=== PATIENT | female | born 1995 | race Caucasian/White ===

== ENCOUNTER 2023-12-24 14:25 | Outpatient (AMB) | payer OTHER, SELFPAY ==
--- NOTE | 2023-12-24 14:32 | A.OFFVIS_ITS ---
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 Have constant headaches every day for the past 15 years. Allergies No Known Allergies Allergy (Verified 12/24/23 14:38) Medication List - Last Reconciled 12/24/23 by CIRILO Diehl venlafaxine ER 75 mg PO DAILY HPI HPI Comments History of Present Illness Details Right handed 28-yr-old female presents for new pt evaluation of headache disorder. Pt reports she has headaches since high school w/o known cause. In the last few years, she tried to manage the headaches by treating her anxiety/depression, TMJ d/o, and adjusting her glasses however these were ineffective. Pt is currently 8 weeks , f/b Dr Hidalgo at [facility], [facility]. Pt also endorses a h/o: Cramps: occasionally Musculoskeletal: back and neck pain- w/o known injury. Mood d/o: Anxiety Sleep d/o: chronic poor sleep, sleep maintenance difficulties, fatigue has had normal in-lab PSG. Constipation: occasional Family history of migraine or other headache disorder: mother has headaches, maternal aunt had brain cancer- in remission. 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 Denies History of concussion/head injury, Respiratory d/o, CV disease, Clotting or hematology d/o, Endocrine or metabolic d/o, History of seizure, syncope, or drop attacks, Headache questionnaire:? Previous work-up: MRI: as a child, her vision would zoom out and everything would become quite tiny. Neuro work-up was normal. No epiosdes of this in many yrs. Typical headache characteristics: Prodrome symptoms: None Aura: None Pain intensity: Dull Location, quality, characteristics: Dull generalized pain, if more severe throbbing, in bilateral temples, and can move into the back of head and neck. Associated symptoms? photophobia, phonophobia, fatigue, difficulty concentrating, activity intolerance. Postdrome: None Triggers: poor sleep, dehydration, poor sleep, standing up can exacerbate the headache. Menstrual triggers: Denies, Menses is regular- typically. Time of day: No specific time of day Duration and Frequency: All days, every day How does headache impact your life? Pushes through her day Current acute medication use/interventions: Nothing Current preventative medication use: Venlafaxine ER 75mg. Magnesium 400mg qhs. Non-pharmacological interventions: Mouth guard Lifestyle considerations: Sleep routine: Bedtime: 9:30-11pm, Wake-up time: 6am Sleep difficulties: Difficulty staying asleep, Fatigue, rare Leg Cramps. Can have some leg restlessness, especially if tired. Caffeine use: Prior to 1 cup of coffee per day Substance use: None Exercise:?Cardio and strength training a few times per week. 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 Head: Yes normocephalic Resp Effort & Inspection: normal respiratory effort and able to speak in complete sentences Neuro Other: TMJ- clicking, sliding on open/close General: patient oriented x3 Cranial nerves: Yes CN's II-XII intact bilaterally (w/ exception of mild right lower fcaial assymetry- ? masseter hypertrophy) Cognition (Neuro): normal cognition Gait exam (Neuro): Normal gait present Motor exam (neuro): 5/5 motor strength present throughout Deep tendon reflexes (DTR's): Right triceps reflex intensity grade: 2+, Left triceps reflex intensity grade: 2+, Rt Biceps (C5, C6): 2+, Left biceps reflex intensity grade: 2+, Right brachioradialis reflex intensity grade: 2+, Left brachioradialis reflex intensity grade: 2+, Right patellar reflex intensity grade: 2+ and Left patellar reflex intensity grade: 2+ Coordination: [id number] test normal, tandem gait normal and Romberg test negative Pupils: Normal pupillary reactivity/response: bilateral Psych Appearance: grossly normal Mental Status: mental status grossly normal Speech and movement: Normal speech and movement present Affect: normal affect Attitude: cooperative Thought process: Normal thought process present Assessment & Plan Assessment & Plan (1) Chronic migraine without aura: Code(s): G43.709 - Chronic migraine without aura, not intractable, without status migrainosus (2) TMJ dysfunction: Code(s): M26.609 - Unspecified temporomandibular joint disorder, unspecified side (3) : Code(s): Z34.90 - Encounter for supervision of normal , unspecified, unspecified trimester Plan For overall headache management: Optimize good self-care, including but not limited to maintaining a healthy diet, adequate fluid intake, adequate sleep, and engaging in regular physical activity. Track headaches As patient is , advised her to notify us or her OB with any changes in her headache presentation, especially vision changes, diplopia, swelling. For TMJ dysfunction: Continue invisalign retainer. Try TMJ jaw support. Consider PT. For acute headache treatment: Discussed importance of taking acute medications at the first sign of headache, however stressed importance of avoiding acute medication overuse. May use Tylenol prn. Offered Sumatriptan- pt would like to hold for now. Consider Nerivio neuromodulation device- 45 stimulation qd prn. Previous acute migraine medication trials: None Acute migraine medication contraindications: For headache prevention medication: Consider Riboflavin 400mg qam- pt to discuss w/ OB. Continue Magnesium 400mg qhs Continue Venlafaxine ER 75mg qd- used primarily for anxiety. Consider Nerivio neuromodulation device- 45 stimulation qod. Previous migraine prevention medication trials: Cosmetic botox was helpful. Migraine prevention medication contraindications: None at this time Pt seen in collaboration w/ Dr Marissa Prince. Pt to follow-up in 6 months or sooner prn. Coding Level of Care Code New Pt Level 4 (82236) Diagnoses Chronic migraine without aura G43.709 TMJ dysfunction M26.609 Z34.90
[2023-12-24 14:43] VITALS: BP 112/60; PULSE 81; O2SAT 98; BMI 30.4
== END 2023-12-24 15:56 | disposition home or self-care (01) ==
PROVIDERS: Visit Provider Nurse Practitioner Family
DX: G43.709 Chronic migraine without aura, not intractable, without status migrainosus (principal); M26.609 Unspecified temporomandibular joint disorder, unspecified side; Z34.90 Encounter for supervision of normal pregnancy, unspecified, unspecified trimester
CPT/HCPCS: 99204

== ENCOUNTER → 2023-12-24 14:25 | Outpatient (BNVA) | payer OTHER, SELFPAY | PROVIDERS: Visit Provider Nurse Practitioner Family ==